=== PATIENT | male | born 1985 | race Two or more races ===

== ENCOUNTER 2022-04-21 19:28 | Emergency (ER) | payer BC, OTHER ==
[~2022-04-21] VITALS: Ht 185.4 cm; Wt 97.5 kg
[2022-04-21] MEDS ORDERED: HYDROCODONE/APAP 5/325MG TABLET PO ONE (20:30)
[2022-04-21] MEDS ORDERED: HYDROCODONE/APAP 5/325MG TABLET ONE (20:46)
[2022-04-21] MEDS ORDERED: IBUP-1955 PO (21:34)
--- NOTE | 2022-04-21 21:49 | NUR ---
Patient discharged to home in stable condition. Written and verbal after care instructions given. Patient verbalizes understanding of instruction.
[2022-04-21 21:50] VITALS: BP 140/70
== END 2022-04-21 21:50 | disposition home or self-care (01) ==
LOC: ER 19:43
DX: M25.562 Pain in left knee (principal); F17.200 Nicotine dependence, unspecified, uncomplicated; Z60.2 Problems related to living alone
CPT/HCPCS: 73564-TC